=== PATIENT | male | born 1990 | race Caucasian/White ===

== ENCOUNTER 2016-10-10 14:50 | Emergency (ER) | payer OTHER ==
[2016-10-10 14:55] VITALS: RESP 18
[2016-10-10] MEDS ORDERED: HYDROmorphONE/DILAUDID 1 MG/ML SYR IVP ONE (15:35)
[2016-10-10 15:58] LABS: ANION GAP 13 mEq/L (8-16); CALCIUM 9.9 mg/dL (8.5-10.4); CARBON DIOXIDE 24 mEq/l (22-31); CHLORIDE 104 mEq/L (97-110); CREATININE 1.1 mg/dL (0.7-1.3); GLOMERULAR FILTRATION RATE > 60; GLUCOSE 84 mg/dL (70-100); POTASSIUM 4.1 mEq/L (3.5-5.2); SODIUM 141 mEq/L (134-144)
--- NOTE | 2016-10-10 16:07 | EDPHY ---
H & P Smoking Status: Former smoker Time Seen by Provider: 10/10/16 15:09 HPI/ROS: CHIEF COMPLAINT: Right shoulder pain HISTORY OF PRESENT ILLNESS: This is a 26-year-old male presenting to the emergency department complaining of right shoulder pain with decreased range of motion. Patient states he has had issues with right shoulder and shoulder dislocation. Ten days ago patient started having increased pain to shoulder unable to raise arm above a 90 degree plain "it feels like it locks in place, felt something tear and then I can't move it". Has been lifting and moving boxes recently but nothing that would cause a traumatic injury. He has been taking ibuprofen without control of pain. REVIEW OF SYSTEMS: Constitutional: No fever, no chills. Eyes: No discharge. No blurred vision ENT: No sore throat. Cardiovascular: No chest pain, no palpitations. Respiratory: No cough, no shortness of breath. Gastrointestinal: No abdominal pain, no vomiting. Musculoskeletal: No back pain. Right shoulder pain decreased range of motion Skin: No rashes. Neurological: No headache. (Brigette Pepe) Physical Exam: General Appearance: Alert and no distress. Eyes: Pupils equal and round no injection. Respiratory: lungs are clear to auscultation. Cardiac: regular rate and rhythm Musculoskeletal: Neck is supple and nontender. Right trapezius tender on palpation Extremities: Right shoulder pain on palpation no obvious dislocation. Decreased range of motion, pain with range of motion positive CMS intact Skin: No rashes or lesions. (Brigette Pepe) Constitutional: Initial Vital Signs Temperature (C) 36.7 C 10/10/16 14:52 Heart Rate 77 10/10/16 14:52 Respiratory Rate 18 10/10/16 14:52 Blood Pressure 138/73 H 10/10/16 14:52 O2 Sat (%) 95 10/10/16 14:52 O2 Delivery Mode Room Air Allergies/Adverse Reactions: No Known Allergies Allergy (Verified 10/10/16 14:55) Home Medications: Medication Instructions Recorded NK [No Known Home Meds] 10/10/16 Medical Decision Making - Diagnostics Imaging Results: MRI shoulder, patient has evidence of a tendinopathy, bursitis and possible partial tear of the rotator cuff. (Ernesto Willis) ED Course/Re-evaluation: Discussed ED plan of care: MRI of right shoulder. Pain medication 1650: Patient to MRI, stable Ativan given due to patient's anxiety 1705: Report handed off to Dr. Willis. (rBigette Pepe) Other Provider: Patient was turned over to me pending the results of his MRI study. It does demonstrate the possibility of a small rotator cuff tear and a tendinopathy in the shoulder. The patient will be placed in a sling and advised to follow up with Orthopedic surgery for further evaluation. (Ernesto Willis) - Data Points Laboratory Results: Laboratory Results 10/10/16 15:35 10/10/16 15:35 Sodium 141 mEq/L mEq/L (134-144) Potassium 4.1 mEq/L mEq/L (3.5-5.2) Chloride 104 mEq/L mEq/L (97-110) Carbon Dioxide 24 mEq/l mEq/l (22-31) Anion Gap 13 mEq/L mEq/L (8-16) BUN 15 mg/dL mg/dL (7-23) Creatinine 1.1 mg/dL mg/dL (0.7-1.3) Estimated GFR > 60 Glucose 84 mg/dL mg/dL (70-100) Calcium 9.9 mg/dL mg/dL (8.5-10.4) Medications Given: Discontinued Medications Hydromorphone HCl (Dilaudid) 0.05 mg IVP EDNOW ONE Stop: 10/10/16 15:36 Last Admin: 10/10/16 15:40 Dose: 0.5 mg Lorazepam (Ativan Injection) 1 mg IVP ONCE ONE Stop: 10/10/16 16:49 Last Admin: 10/10/16 16:48 Dose: 1 mg Departure - Departure Disposition: Home, Routine, Self-Care Clinical Impression: Right shoulder strain, Partial tear of rotator cuff Condition: Good Instructions: Rotator Cuff Injury (ED) Additional Instructions: 1. Please follow up with the orthopedic surgeon you have been referred to for further evaluation of your rotator cuff injury. 2. Sling as needed for comfort. 3. Take Ibuprofen or Motrin 600 mg by mouth three times a day. Referrals: Huong Darnell MD [Medical Doctor] - As per Instructions
[2016-10-10] MEDS ORDERED: LORazepam 2 MG/ML INJ ONE (16:46)
[2016-10-10] MEDS ORDERED: LORazepam 2 MG/ML INJ IVP ONE (16:48)
[2016-10-10 18:11] VITALS: BP 128/78; PULSE 86; TEMP 97.9; O2SAT 96
== END 2016-10-10 18:11 | disposition home or self-care (01) ==
DX: S46.011A Strain of muscle(s) and tendon(s) of the rotator cuff of right shoulder, initial encounter (principal); Z87.891 Personal history of nicotine dependence; X50.0XXA Overexertion from strenuous movement or load, initial encounter; Y93.F2 Activity, caregiving, lifting
CPT/HCPCS: 96374; A4565; J1170; J2060

== ENCOUNTER → 2017-01-06 | Outpatient (CLI) | payer OTHER | LOC: FIMAGING 08:43 | PROVIDERS: ATTEND Neurological Surgery | DX: M54.12 Radiculopathy, cervical region (principal) ==

== ENCOUNTER → 2018-08-06 | Outpatient (CLI) | payer OTHER | LOC: BRMIMAGING 17:01 | DX: S99.921A Unspecified injury of right foot, initial encounter (principal) | CPT/HCPCS: 73630-PO ==